=== PATIENT | male | born 1960 | race Caucasian/White ===

== ENCOUNTER 2018-11-02 14:42 | Emergency (ER) | payer OTHER ==
[~2018-11-02] VITALS: Ht 175.3 cm; Wt 127.3 kg
[2018-11-02 14:43] VITALS: BP 167/92
== END 2018-11-02 14:58 | disposition left against medical advice (07) ==
LOC: M ED 14:42
DX: Z53.21 Procedure and treatment not carried out due to patient leaving prior to being seen by health care provider (principal)

== ENCOUNTER → 2019-08-06 | Outpatient (CLI) | payer OTHER ==
[2019-08-06 09:10] LABS: HEMATOCRIT 49.7 % (42.0-52.0); HEMOGLOBIN 15.8 g/dl (13.5-17.5); MEAN CORPUSCULAR HGB CONC 31.8 g/dl (32.0-36.5); MEAN CORPUSCULAR VOLUME 91.4 fl (80.0-96.0); PLATELET COUNT, AUTOMATED 239 10^3/uL (150-450); RED BLOOD COUNT 5.44 10^6/uL (4.30-6.10); WHITE BLOOD COUNT 6.2 10^3/uL (4.0-10.0)
[2019-08-06 09:33] LABS: ERYTHROCYTE SEDIMENTATION RATE 18 mm/hr (0-20)
[2019-08-06 09:36] LABS: ALBUMIN 3.8 GM/DL (3.2-5.2); ALT/SGPT 34 U/L (12-78); BILIRUBIN,TOTAL 0.8 MG/DL (0.2-1.0); BLOOD UREA NITROGEN 16 MG/DL (7-18); CALCIUM LEVEL 8.9 MG/DL (8.8-10.2); CARBON DIOXIDE LEVEL 29 MEQ/L (21-32); CHLORIDE LEVEL 103 MEQ/L (98-107); CREATININE FOR GFR 1.08 MG/DL (0.70-1.30); GLOMERULAR FILTRATION RATE > 60.0 (>49); GLUCOSE, FASTING 89 MG/DL (70-100); POTASSIUM SERUM 4.4 MEQ/L (3.5-5.1); SODIUM LEVEL 139 MEQ/L (136-145); TOTAL PROTEIN 7.4 GM/DL (6.4-8.2)
[2019-08-06 09:55] LABS: INR 1.2; PROTHROMBIN TIME 14.9 SECONDS (11.8-14.0)
--- NOTE | 2019-08-06 10:08 | REP ---
CHEST, TWO VIEWS: COMPARISON: 10/19/2012 There is no evidence of acute infiltrate. No pleural effusion is seen. The heart is normal in size. The mediastinal silhouette is unremarkable. The visualized osseous structures are intact. There are degenerative changes of the spine. IMPRESSION: No acute pulmonary disease. Electronically Signed by Shashank Posey MD 08/07/2019 03:12 P
--- NOTE | 2019-08-06 17:41 | ECGEPIP ---
[facility] Test Date: 2019-08-06 Pat Name: ALEXANDREA EID Department: Room: - Gender: Male District Wire Chief: GENEVA : 1960 Requested By: Joo Wills Order Number: [id number] Reading MD: Tonny Cobb Measurements Intervals Jerome Rate: 75 P: 5 AZ: 147 QRS: -4 QRSD: 101 T: 39 QT: 373 QTc: 419 Interpretive Statements SINUS RHYTHM rule out prior IWMI No prior tracing for comparison. Electronically Signed on 08-06-2019 17:41:11 EST by Tonny Cobb
== END ==
LOC: M LAB 08:16
PROVIDERS: ATTEND Orthopaedic Surgery
DX: Z01.818 Encounter for other preprocedural examination (principal); M16.11 Unilateral primary osteoarthritis, right hip

== ENCOUNTER 2019-08-25 06:07 | Inpatient (IN) | payer OTHER ==
--- NOTE | 2019-08-20 10:08 | HPE ---
DATE OF ADMISSION: 08/25/2019 ATTENDING PHYSICIAN: Joo Wills MD CHIEF COMPLAINT: Right hip pain and stiffness. HISTORY: This is a pleasant 59-year-old male patient with progressively worsening right hip pain and stiffness. He has failed to improve with conservative management to include injections, rest, activity modifications and therapy. He has pain with weightbearing activities, walking, climbing stairs and kneeling. It affects his activities of daily living (ADL). He has elected for surgery for his continued symptoms. He has consented for a right total hip arthroplasty by Dr. Wills. X-rays of his right hip notable for bone on bone contact and degeneration of the right hip. ALLERGIES: No known drug allergies. CURRENT MEDICATIONS: - tramadol 50 mg once by mouth every 8 hours - Eliquis 5 mg twice a day by mouth - tizanidine 10 mg one by mouth every evening prior to bed PAST MEDICAL HISTORY: Lumbar degenerative joint disease requiring epidural steroid injections (PRAVEEN). Deep vein thrombosis (DVT) October 2018. Fracture of the right hip and femur 1963. PAST SURGICAL HISTORY: None within the past 10 years. SOCIAL HISTORY: He does not smoke. He is a social drinker. FAMILY HISTORY: Noncontributory. REVIEW OF SYSTEMS: Denies fever or chills. Denies chest pain, shortness of breath or cough. Denies difficulty breathing. Denies abdominal pain. Denies nausea or vomiting. Has persistent pain in his right hip with weightbearing activities. Denies upper respiratory infection (URI) or urinary tract infection (UTI) symptoms. VITALS: Height 70 inches, weight 270 pounds, temperature 98 degrees, blood pressure 131/82, pulse 71, respiratory rate 16. PHYSICAL EXAMINATION: Physical exam today reveals a well nourished, well developed alert male patient who walks with a slight gimp favoring his right hip and requires a cane for assistance in ambulation. Exam of the right hip reveals skin to be intact. No erythema, edema or ecchymosis. Tenderness over the anterior aspect of the hip with pain with internal and external range of motion. He has a well perfused left lower extremity. Neck is supple without adenopathy or jugular venous distention (JVD). Lungs are clear to auscultation without rales or wheeze. Heart regular rate and rhythm. Abdomen bowel sounds are present. EKG sinus rhythm. Chest x-ray no acute pulmonary process noted. LABORATORIES: White count 6.2, red count 5.44, hemoglobin 15.8, hematocrit 49.7. Glucose 89, BUN 16, creatinine 1.08, sodium 139, potassium 4.4. Prothrombin time 14.9, INR 1.2. Preoperative medical optimization by Dr. Duran, that is not present for review today. Reviewed pre and post operative instructions to include but not limited to-need to be NPO after midnight, when to stop NSAIDs and ASA, importance of following primarys and cardiologists recommendations for stopping anticoagulants and the primary recommendations for how to take their daily medications IMPRESSION: Symptomatic osteoarthritis of his right hip. PLAN: Consented for a right hip total arthroplasty by Dr. Wills. STEVEN
[2019-08-25] VITALS (7 sets, daily range): BP systolic 118–136; BP diastolic 79–89
[~2019-08-25] VITALS: Ht 175.3 cm; Wt 123.8 kg
[~2019-08-25 06:07] MED LIST: ELIQ5TAB PO; TIZA2CAP PO; TRAM50TA2 PO
[2019-08-25] MEDS ORDERED: ceFAZolin 1GM INJ (J0690 PER 500MG) As Ordered ONE ×2 (06:26→07:12)
[2019-08-25] MEDS ORDERED: ceFAZolin 2 GM/D5W 50 ML IV BAG (J0690 PER 500MG) As Ordered ONE (06:27)
[2019-08-25] MEDS ORDERED: ceFAZolin SOD 1 GM in D5W MINI-BAG PLUS 50 ML IV ONE (07:00)
[2019-08-25] MEDS ORDERED: LR 1,000 ML IV ONE (07:00)
[2019-08-25] MEDS ORDERED: ceFAZolin SOD 2 GM in IV 1 EA IV ONE (07:00)
[2019-08-25] MEDS ORDERED: ACETAMINOPHEN 1000MG 100ML IV BTL (OFIRMEV) (J0131 PER 10MG) As Ordered ONE (07:10)
[2019-08-25] MEDS ORDERED: propofoL 200 MG/20 ML VIAL As Ordered ONE (07:10)
[2019-08-25] MEDS ORDERED: ROCURONIUM BROMIDE 50 MG/5 ML VIAL As Ordered ONE (07:10)
[2019-08-25] MEDS ORDERED: MIDAZOLAM INJ 2 MG/2 ML VIAL (J2250) As Ordered ONE (07:10)
[2019-08-25] MEDS ORDERED: LIDOCAINE 2% INJ 100 MG/5 ML SDV (FOR ANES.) As Ordered ONE (07:10)
[2019-08-25] MEDS ORDERED: ONDANSETRON 4MG/2ML VIAL (J2405) As Ordered ONE (07:10)
[2019-08-25] MEDS ORDERED: fentaNYL 100 MCG/2 ML INJECTION (J3010) As Ordered ONE (07:10)
[2019-08-25] MEDS ORDERED: dexameTHASONE 4 MG/ML 1ML VIAL (J1100) As Ordered ONE (07:10)
[2019-08-25] MEDS ORDERED: TRANEXAMIC ACID 100 MG/ML 10ML VIAL As Ordered ONE (07:12)
[2019-08-25] MEDS ORDERED: EPINEPHrine INJ 1 MG/ML 1ML VIAL As Ordered ONE (07:13)
[2019-08-25] MEDS ORDERED: BUPIVACAINE LIPOSOME/PF 1.3% 20ML VIAL (13.3MG/ML)(EXPAREL)(C9290 PER1MG) As Ordered ONE (07:13)
[2019-08-25] MEDS ORDERED: KETOROLAC 60 MG/2 ML VIAL (J1885) As Ordered ONE (07:16)
--- NOTE | 2019-08-25 07:47 | IPN ---
DATE: 08/25/2019 The patient seen and examined. He wishes to go ahead with a right total hip arthroplasty and we agreed on a ceramic head polyethylene liner. He understands the nature of this and the risks of bleeding, infection, damage to nerves, vessels, persistent pain, wear, loosening, dislocation, leg length inequality, blood clots, medical problems, among others. He does have morbid obesity and understands that this significantly adds to the risk profile of the surgery and perioperative period.
[2019-08-25] MEDS ORDERED: PHENYLephrine HCL 500 MCG/5 ML (100MCG/ML) SYRINGE (J2370) As Ordered ONE (08:26)
[2019-08-25] MEDS ORDERED: oxyCODONE 5MG TAB PO PRN (10:00)
[2019-08-25] MEDS ORDERED: HYDROMORPHONE HCL 0.5 MG/ 0.5 ML SYRINGE (J1170 PER 1) IV PRN (10:00)
[2019-08-25] MEDS ORDERED: LR 1,000 ML IV SCH ×2 (10:00→11:00)
[2019-08-25] MEDS ORDERED: ONDANSETRON 4MG/2ML VIAL (J2405) IV PRN ×2 (10:00→11:00)
[2019-08-25] MEDS ORDERED: fentaNYL 100 MCG/2 ML INJECTION (J3010) IV PRN (10:00)
[2019-08-25] MEDS ORDERED: PILL CUTTER 1 EACH XX ONE (10:04)
--- NOTE | 2019-08-25 10:19 | REP ---
Right hip, postoperative study: There are no comparisons. There are two views. There is a total hip arthroplasty. The components are tightly applied and in satisfactory positions alignment. Skin gary are identified incidentally. Electronically Signed by Shashank Smith MD 08/25/2019 10:10 A
[2019-08-25] MEDS ORDERED: MORPHINE 4 MG/ML 1ML VIAL/SYRINGE (J2270) IV PRN (11:00)
[2019-08-25] MEDS ORDERED: ACETAMINOPHEN TAB 650MG DOSE (2X325MG) PO PRN (11:00)
[2019-08-25] MEDS ORDERED: MORPHINE 2 MG/ML 1ML VIAL (J2270) IV PRN (11:00)
[2019-08-25] MEDS ORDERED: traMADol 50 MG TAB PO PRN (14:00)
[2019-08-25] MEDS: PERCOCET 5MG/325MG TAB PO PRN ×2 (14:45→22:34)
[2019-08-25] MEDS: ceFAZolin SOD 1 GM in D5W MINI-BAG PLUS 50 ML IV SCH (16:41)
[2019-08-25] MEDS: ceFAZolin SOD 2 GM in IV 1 EA IV SCH (17:45)
--- NOTE | 2019-08-25 20:00 | CR ---
DATE OF CONSULTATION: 08/25/2019 Approximately 1:30 p.m. PHYSICIAN REQUESTING CONSULTATION: Dr. Wills REASON FOR CONSULTATION: Medical comanagement. HISTORY OF PRESENT ILLNESS: Mr. Moon is a 59-year-old gentleman who has a history of a left lower extremity deep vein thrombosis (DVT), which is presumed to have been provoked secondary to underlying hypercoagulable state. He cannot recollect exactly which genetic condition he has, as well as immobility associated with severe left hip osteoarthritis. Patient presented today for an elective left total hip arthroplasty. He is seen by me in the postoperative setting in his room. At present moment, patient denies having any shortness of breath, chest discomfort. He is resting comfortable. His vital signs are stable. His pain is relatively well controlled. He is not experiencing any postoperative nausea or vomiting. ALLERGIES: BETA BLOCKERS as well as LOSARTAN. HOME MEDICATIONS: - Eliquis 5 mg twice a day, for which he is on life therapy - tizanidine - tramadol PAST MEDICAL HISTORY: Notable for: 1. Chronic pain syndrome associated with left hip osteoarthritis. 2. Unprovoked left lower extremity DVT secondary to hypercoagulable state. 3. Hypercoagulable state. PAST SURGICAL HISTORY: Notable for: 1. Previous Achilles tendon repair involving his left leg. 2. Repair of a right hip fracture in the 1960s. SOCIAL HISTORY: Patient is . He lives at home with his . 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 He is a social drinker. Does not use tobacco or illicit drugs. FAMILY HISTORY: Noncontributory but was asked. REVIEW OF SYSTEMS: All systems reviewed with the patient, otherwise negative. PHYSICAL EXAMINATION: Vital signs: Temperature is 97.7, pulse 63 and regular, respirations 20, blood pressure 147/82, oxygen saturation 94% on room air. In general, patient is alert and oriented times three. He is an obese gentleman who appears to be in no acute distress. He is resting comfortably. His breathing is nonlabored. His skin is warm to touch without any cyanosis or jaundice. His head is atraumatic. His pupils are without any scleral icterus. He has eyeglasses in place. Oropharynx is clear without any erythema or thrush. Neck is supple. No evidence of jugular venous distention. Trachea is midline. No audible stridor. Lung sounds are noted bilaterally with symmetric chest wall rise. Adventitial lung sounds are heard. Heart is S1, S2. No audible murmurs or gallops. Abdomen is soft, protuberant, nontender, nondistended with active bowel sounds. Extremities: Left thigh area is wrapped with a surgical dressing with no evidence of exsanguination at this time. His right dorsalis pedis is 2+ palpable. Neurologic: Cranial nerves II-XII appear to be grossly intact. Gait is not tested. Patient has no focal neurologic deficits. No labs are available for me to review. IMPRESSION: 1. Postoperative day 0, status post right total hip arthroplasty. 2. History of lower extremity deep vein thrombosis, currently on life-long anticoagulation. 3. Chronic pain syndrome secondary to severe right hip osteoarthritis. RECOMMENDATIONS: Resume patient's Eliquis at present dose that he takes at home in the postoperative setting when okay with orthopedic service. Will monitor complete blood count (CBC) and follow along. In addition, I have resumed his tramadol. Patient is otherwise medically stable from my standpoint at this time. Thank you for allowing us to participate in the care of the patient.
[2019-08-26] VITALS (8 sets, daily range): BP systolic 95–137; BP diastolic 50–89
[2019-08-26] MEDS: ceFAZolin SOD 1 GM in D5W MINI-BAG PLUS 50 ML IV SCH ×2 (01:12→08:12)
[2019-08-26] MEDS: ceFAZolin SOD 2 GM in IV 1 EA IV SCH ×2 (02:23→08:13)
[2019-08-26] MEDS ORDERED: PERCOCET 5MG/325MG TAB PO PRN (06:00)
[2019-08-26] MEDS ORDERED: PERC5TAB12 PO (06:21)
[2019-08-26] MEDS: PERCOCET 5MG/325MG TAB PO PRN ×4 (06:22→22:23)
[2019-08-26 06:46] LABS: HEMATOCRIT 40.7 % (42.0-52.0); HEMOGLOBIN 13.1 g/dl (13.5-17.5); MEAN CORPUSCULAR HEMOGLOBIN 28.8 pg (27.0-33.0); MEAN CORPUSCULAR HGB CONC 32.2 g/dl (32.0-36.5); MEAN CORPUSCULAR VOLUME 89.5 fl (80.0-96.0); PLATELET COUNT, AUTOMATED 184 10^3/uL (150-450); RED BLOOD COUNT 4.55 10^6/uL (4.30-6.10); WHITE BLOOD COUNT 6.3 10^3/uL (4.0-10.0)
[2019-08-26 06:55] LABS: INR 1.18; PROTHROMBIN TIME 14.8 SECONDS (11.8-14.0)
--- NOTE | 2019-08-26 09:29 | RO ---
DATE OF PROCEDURE: 08/25/2019 PREOPERATIVE DIAGNOSIS: Right hip osteoarthritis. POSTOPERATIVE DIAGNOSIS: Right hip osteoarthritis. PROCEDURE: Right total hip arthroplasty using a [place] size 5 standard, +1.5, 36 ceramic ball and a 54 acetabular component with the polyethylene liner. SURGEON: Joo Wills MD COUNTER SALES REPRESENTATIVE: Aidan Queen PA-C ANESTHESIA: Spinal. ESTIMATED BLOOD LOSS: 300 mL. COMPLICATIONS: None. INDICATIONS: This is a 59-year-old morbidly obese gentleman who wished to go ahead with a hip replacement. Preop clearance was obtained. PROCEDURE: Patient was taken to the operating room, placed in the left lateral decubitus position on the [place] positioner. All areas were padded appropriately. The right hip was prepped and draped in the usual sterile fashion. A time out was performed. I then created a longitudinal incision over the lateral aspect the hip that was longer than typical incision due to his morbid obesity. Sharp dissection was carried down to subcutaneous tissue. Controlled hemostasis with cautery. Incised the fascia flory, which was quite thin, and then divided the anterior 40% of the abductors off of the anterior aspect of the hip. He had fairly large abductors that made this challenging. I then dislocated the hip, used a canal initiating reamer, the canal finding reamer, lateralizing reamer and sequentially reamed up to a size 5, which had a good purchase. I cut the neck off at the appropriate length using a broach as a trial and then we prepared the acetabulum. With some difficulty, I was able to expose the acetabulum, removed soft tissue from around the acetabulum and then sequentially reamed up to a size 53 reamer, which had good bleeding bone and good concentric reaming. I impacted in a 54 cup in the appropriate amount of anteversion, horizontal tilt and then removed osteophytes from the anterior aspect of the acetabulum. The polyethylene liner was impacted, a 36 x 54. This we made sure was well seated. I irrigated multiple times up to this point. I then prepared the canal, used various different broaches and was able to get up to a size 5, which was pretty flush with the neck cut and then I trialed off this with the 1.5 standard neck. The neck cut seemed to be appropriate length about three-quarters of a fingerbreadth and reduced the hip without too much difficulty, put the hip through range of motion. There was minimal shuck in full extension. Excellent stability in external rotation, extension and in flexion internal rotation, although his thigh did impinge on his pannus which could potentially lead to instability. It was certainly not unstable intraoperatively. I then removed the trial components, irrigated, placed the actual size 5 stem standard offset, impacted it in place, got it well seated and then placed the head +1.5 36 ceramic impacted it in place, made sure was well seated. We reduced the hip, put the hip through a range of motion again, very pleased with stability and range of motion of the hip. I then irrigated, placed the TXA, repaired the deep layer with #1 Vicryl suture. Several stitches through in the abductor to repair back to the femur and irrigated, closed the fascia flory with #1 Vicryl suture and running STRATAFIX, and again this layer was fairly thin. I irrigated at each level. I placed the TXA deep in the tissues and then irrigated it out later. Placed the Exparel in the deep tissues. The subcu was closed in two layers with #2-0 Vicryl and the skin with gary. Sterile dressing was applied and he was taken to recovery in stable condition. There were no known complications. The plan will be routine postop. The training and development assistant was instrumental in holding retractors and assisting in reducing and dislocating the hip and assisting in wound closure. This is coded as unusually difficult procedure with the patient's BMI of over just over 40. He had significant obesity. This made the dissection much more difficult, made managing the tissues more difficult, reducing and dislocating the hip much more difficult, and assessing soft tissue balance more difficult. It also added to the time for exposure and wound closure.
[2019-08-26] MEDS: MOM 30ML SUSPENSION UDC PO SCH (09:34)
[2019-08-26] MEDS: MIRALAX *UNIT DOSE* 17GM PACKET PO SCH (09:34)
[2019-08-26] MEDS: APIXABAN 5 MG TAB (ELIQUIS) PO SCH ×2 (09:34→20:06)
--- NOTE | 2019-08-26 18:28 | IPNPDOC ---
Subjective Date Seen The patient was seen on 08/26/19. Subjective Chief Complaint/HPI Didn't sleep well. Had low bp while walking with PT, unable to do stairs today. Objective Physical Examination General Exam: Positive: Alert, No Acute Distress Eye Exam: Positive: PERRLA, Conjunctiva & lids normal, EOMI; Negative: Sclera icteric ENT Exam: Positive: Atraumatic, Mucous membr. moist/pink, Pharynx Normal Neck Exam: Positive: Supple; Negative: JVD, thyromegaly Chest Exam: Positive: Clear to auscultation, Normal air movement Heart Exam: Positive: Rate Normal, Regular Rhythm, Normal S1, Normal S2; Negative: Murmurs, Rubs Telemetry: Positive: No significant arrhythmia Abdomen Exam: Positive: Normal bowel sounds, Soft; Negative: Tenderness, Hepatospenomegaly Male Exam: Positive: Normal Genital Exam Extremity Exam: Positive: Normal pulses; Negative: Clubbing, Cyanosis, Edema Skin Exam: Positive: Nl turgor and temperature; Negative: Rash, Breakdown Neuro Exam: Positive: Normal Gait, Normal Speech, Cranial Nerves 3-12 NL, Reflexes 2+ Psych Exam: Positive: Mental status NL, Mood NL, Oriented x 3 Assessment /Plan Assessment 1. Postoperative day 0, status post right total hip arthroplasty 2. History of lower extremity deep vein thrombosis, currently on life-long anticoagulation 3. Chronic pain syndrome secondary to severe right hip osteoarthritis Plan: - medically stable - home in am - CBC stable this am - resume eliquis Plan/VTE VTE Prophylaxis Ordered?: Yes VS, I&O, 24H, Fishbone Vital Signs/I&O Vital Signs Date Time Temp Pulse Resp B/P (MAP) Pulse Ox O2 Delivery O2 Flow Rate FiO2 08/26/19 18:10 18 Room Air 08/26/19 14:01 98.8 77 137/83 (101) 97 I&O- Last 24 Hours up to 6 AM 08/26/19 06:00 Intake Total 4213 ml Output Total 2200 ml Balance 2013 ml Laboratory Data 24H LABS Laboratory Tests 2 08/26/19 06:20: Nucleated Red Blood Cells % (auto) 0.0, Prothrombin Time 14.8H, Prothromb Time International Ratio 1.18 CBC/BMP Laboratory Tests 08/26/19 06:20 DULCE GERMAN MD Aug 26, 2019 18:28
[2019-08-27 06:01] VITALS: BP 123/77
[2019-08-27 07:03] LABS: HEMATOCRIT 35.7 % (42.0-52.0); HEMOGLOBIN 11.7 g/dl (13.5-17.5); MEAN CORPUSCULAR HEMOGLOBIN 29.3 pg (27.0-33.0); MEAN CORPUSCULAR HGB CONC 32.8 g/dl (32.0-36.5); MEAN CORPUSCULAR VOLUME 89.5 fl (80.0-96.0); PLATELET COUNT, AUTOMATED 165 10^3/uL (150-450); RED BLOOD COUNT 3.99 10^6/uL (4.30-6.10); WHITE BLOOD COUNT 5.8 10^3/uL (4.0-10.0)
[2019-08-27 07:14] LABS: INR 1.37; PROTHROMBIN TIME 16.6 SECONDS (11.8-14.0)
[2019-08-27] MEDS: MIRALAX *UNIT DOSE* 17GM PACKET PO SCH (08:43)
[2019-08-27] MEDS: MOM 30ML SUSPENSION UDC PO SCH (08:43)
[2019-08-27] MEDS: APIXABAN 5 MG TAB (ELIQUIS) PO SCH (08:43)
[2019-08-27] MEDS: PERCOCET 5MG/325MG TAB PO PRN (08:44)
--- NOTE | 2019-08-31 14:14 | DSES ---
DATE OF ADMISSION: 08/25/2019 DATE OF DISCHARGE: 08/27/2019 DISCHARGE DIAGNOSIS: Right hip arthritis status post right total hip arthroplasty. HISTORY: This is a 59-year-old male with progressively worsening right hip pain and stiffness. The patient Had failed to improve with conservative treatment and elected for surgery. PROCEDURE PERFORMED: Right total hip arthroplasty. HOSPITAL COURSE: The patient was admitted on the day of surgery and underwent right total hip arthroplasty that was without complications. The patient's hospital course was without complications. He was up with physical therapy per their protocol and his pain was controlled. On the day of discharge, the patient was doing well. He was weightbearing as tolerated using his walker. He will resume preoperative medications and diet. He will use oral medications for pain control. He will use Xarelto for 12 days postoperatively and thromboembolic deterrent (REBECCA) stockings for deep venous thrombosis (DVT) prophylaxis. Additionally, the patient will followup in the office in 2 weeks for wound check and staple removal. For further information please see the medical record.
== END 2019-08-27 11:05 | disposition home or self-care (01) | DRG 301 ==
LOC: M OR 06:07 → M MS5PR 12:45
PROVIDERS: ADMIT Orthopaedic Surgery; ATTEND Orthopaedic Surgery
PROC: 0SR904Z Replacement of Right Hip Joint with Ceramic on Polyethylene Synthetic Substitute, Open Approach (ICD-10-PCS; principal; 2019-08-25 07:30)
DX: M16.11 Unilateral primary osteoarthritis, right hip (principal); Z68.41 Body mass index [BMI] 40.0-44.9, adult; E66.01 Morbid (severe) obesity due to excess calories; Z79.01 Long term (current) use of anticoagulants; Z79.899 Other long term (current) drug therapy; M51.36 Other intervertebral disc degeneration, lumbar region; Z87.81 Personal history of (healed) traumatic fracture; Z86.718 Personal history of other venous thrombosis and embolism

== ENCOUNTER → 2020-01-17 | Outpatient (CLI) | payer OTHER ==
[~2020-01-17] MED LIST changes: +PERC5TAB12 PO
== END ==
LOC: M LABSMTC 11:49
PROVIDERS: ATTEND Physical Medicine & Rehabilitation
DX: Z03.818 Encounter for observation for suspected exposure to other biological agents ruled out (principal); Z11.59 Encounter for screening for other viral diseases

== ENCOUNTER → 2020-03-27 | Outpatient (CLI) | payer OTHER | LOC: M LABSMTC 13:44 | PROVIDERS: ATTEND Physical Medicine & Rehabilitation | DX: Z20.828 Contact with and (suspected) exposure to other viral communicable diseases (principal) | CPT/HCPCS: C9803; U0003 ==

== ENCOUNTER → 2020-05-31 | Outpatient (CLI) | payer OTHER | LOC: M LABSMTC 11:17 | PROVIDERS: ATTEND Physical Medicine & Rehabilitation | DX: Z01.818 Encounter for other preprocedural examination (principal) ==

== ENCOUNTER → 2020-05-31 | Outpatient (CLI) | payer OTHER ==
[2020-05-31 15:53] LABS: PLATELET COUNT, AUTOMATED 240 10^3/uL (150-450)
[2020-05-31 16:06] LABS: INR 1.02; PROTHROMBIN TIME 13.6 SECONDS (12.5-14.3)
[2020-05-31 16:07] LABS: PARTIAL THROMBOPLASTIN TIME 38.1 SECONDS (24.2-38.5)
== END ==
LOC: M PLALAB 12:12
PROVIDERS: ATTEND Physician Assistant
DX: M51.37 Other intervertebral disc degeneration, lumbosacral region (principal)

== ENCOUNTER → 2021-05-22 | Outpatient (REF) ==
--- NOTE | 2021-05-22 13:57 | REP ---
INDICATION: PAIN. COMPARISON: None TECHNIQUE: AP and lateral views FINDINGS: There is disc space narrowing which is moderate at every level with anterior lipping. Degenerative facet joint changes are present at every level bilaterally particularly L4-5 L5-S1. Vertebral body height and alignment is within normal limits. There is a levoconvex curve. There is marginal osteophytosis at every level bilaterally but particularly on the right. IMPRESSION: Chronic changes as described above. <Electronically signed by Kota Segura > 05/22/21 [id number]
== END ==
LOC: M PLAIMG 11:41
PROVIDERS: ATTEND Internal Medicine
DX: M54.50 Low back pain, unspecified (principal)

== ENCOUNTER → 2021-10-10 | Outpatient (CLI) | payer OTHER | LOC: M PAIN 08:30 | PROVIDERS: ATTEND Anesthesiology | DX: M47.816 Spondylosis without myelopathy or radiculopathy, lumbar region (principal); M51.17 Intervertebral disc disorders with radiculopathy, lumbosacral region; M79.18 Myalgia, other site; G47.30 Sleep apnea, unspecified; Z96.641 Presence of right artificial hip joint; E66.01 Morbid (severe) obesity due to excess calories; Z68.43 Body mass index [BMI] 50.0-59.9, adult; Z79.01 Long term (current) use of anticoagulants; Z79.899 Other long term (current) drug therapy ==

== ENCOUNTER → 2021-12-20 | Outpatient (CLI) | payer OTHER | LOC: M PLAIMG 11:18 | PROVIDERS: ATTEND Family Medicine | DX: M51.26 Other intervertebral disc displacement, lumbar region (principal); M51.27 Other intervertebral disc displacement, lumbosacral region; M48.061 Spinal stenosis, lumbar region without neurogenic claudication; M54.40 Lumbago with sciatica, unspecified side ==